=== PATIENT | female | born 1980 | race Caucasian/White ===

== ENCOUNTER → 2020-01-04 14:51 | Outpatient (CLI) | payer BC, SELFPAY ==
--- NOTE | ~2020-01-04 | US_ITS ---
EXAMINATION: US thyroid EXAM DATE: 01/04/2020 15:15 INDICATION: Enlarged thyroid, left neck pain. TECHNIQUE: Multiple grayscale and Doppler images of the thyroid were obtained (by a technologist who performed the scan) and subsequently reviewed. Individual nodules and recommendations may be reporte d in accordance with TI-RADS system as designated by the 2017 ACR White Paper TI-RADS committee. The re is no prior study for comparison. FINDINGS: Right thyroid lobe measures 5.3 x 1.4 x 1.6 cm, the left thyroid lobe measuring 4.0 x 1.1 x 1.6 cm. T here are 3 and a 4 mm hypoechoic nodule within each thyroid lobe, not likely clinically significant a nd requiring no further follow-up. IMPRESSION: Mild thyromegaly, tiny nodules not likely clinically significant. Reviewed, dictated and finalized at location B.
== END ==
PROVIDERS: PCP Family Medicine; Visit Provider Nurse Practitioner Family
DX: R07.0 Pain in throat (principal); E04.9 Nontoxic goiter, unspecified
CPT/HCPCS: 76536